=== PATIENT | male | born 1945 | race African-American/Black ===

== ENCOUNTER 2020-01-21 16:18 | Emergency (ER) | payer MEDICARE, OTHER ==
[~2020-01-21] VITALS: Ht 188 cm; Wt 82.0 kg
[2020-01-21] MEDS ORDERED: HYDROCODONE/ACETAMINOPHEN 5/325MG TABLET PO ONE (17:15)
[2020-01-21] MEDS ORDERED: LIDOCAINE HCL/EPINEPHRINE 1%-EPI 1:100,000 20 ML VIAL INFIL NR (17:15)
[2020-01-21] MEDS ORDERED: BACITRACIN ZINC OINT UDPKT TOP ONE (17:15)
[2020-01-21] MEDS ORDERED: TETANUS, DIPHTHERIA, PERTUSSIS VAC/PF 0.5ML (>7YR OLD) IM ONE (17:15)
[2020-01-21] MEDS ORDERED: LIDOCAINE 1%/EPI 1:100,000 10 ML VIAL IJ ONE (17:15)
[2020-01-21 19:11] VITALS: BP 129/75
== END 2020-01-21 19:15 | disposition home or self-care (01) ==
LOC: ER 16:18
DX: S61.511A Laceration without foreign body of right wrist, initial encounter (principal); S61.011A Laceration without foreign body of right thumb without damage to nail, initial encounter; W30.89XA Contact with other specified agricultural machinery, initial encounter; Y93.89 Activity, other specified; Y92.017 Garden or yard in single-family (private) house as the place of occurrence of the external cause
CPT/HCPCS: 12002; 73100; 73130; 90471; 90715; 99283; J3490

== ENCOUNTER 2020-02-13 16:20 | Emergency (ER) | payer MEDICARE ==
[~2020-02-13] VITALS: Ht 188 cm; Wt 84.0 kg
[2020-02-13 17:56] VITALS: BP 110/78
== END 2020-02-13 17:56 | disposition home or self-care (01) ==
LOC: ER 16:20
DX: S61.011D Laceration without foreign body of right thumb without damage to nail, subsequent encounter (principal); Z48.02 Encounter for removal of sutures; X58.XXXD Exposure to other specified factors, subsequent encounter
CPT/HCPCS: 99281